=== PATIENT | female | born 1975 | race Caucasian/White ===

== ENCOUNTER 2018-01-24 04:45 | Emergency (ER) | payer SELFPAY ==
[2018-01-24 05:04] VITALS: BP 118/71; PULSE 65; RESP 18; TEMP 36.4; O2SAT 100; BMI 26.2
--- NOTE | 2018-01-24 05:17 | DI.CT.S_ITS ---
PROCEDURE: CT ABDOMEN PELVIS W CON INDICATIONS: upper abdominal pain w/ emesis, poor passage of flatus TECHNIQUE: After the administration of intravenous contrast, 5 mm thick sections acquired from the diaphragm to the symphysis. 5 mm coronal and sagittal reformats were acquired. For radiation dose reduction, the following was used: automated exposure control, adjustment of mA and/or kV according to patient size. COMPARISON: None. FINDINGS: Image quality: Excellent. ABDOMEN: Lung bases: Lung bases are clear. Heart size is normal. Solid organs: Liver is normal in size and enhancement. Gallbladder is surgically absent. Extrahepatic biliary ductal dilatation is present. Common bile duct measures 12 mm. Common hepatic duct is also distended measuring 12 mm. Pancreas enhances normally. Spleen is normal in size and enhancement. No adrenal nodules. Scarring within the interpolar right kidney is present. Kidneys demonstrate otherwise normal size and enhancement, without hydronephrosis. Peritoneum and bowel: There is fecalization and mild distention of a small bowel loop within the left pelvis anteriorly. Bowel loops demonstrate otherwise normal wall thickness and caliber. No free fluid or air. Appendix not seen. No evidence of appendicitis. Nodes and vessels: No retroperitoneal or mesenteric adenopathy by size criteria. Aorta and inferior vena cava are normal in size. Miscellaneous: No ventral hernias. PELVIS: Genitourinary: Bladder wall thickness is normal. Miscellaneous: No inguinal hernias or adenopathy. Bones: No suspicious bony lesions. No vertebral body compression fractures. IMPRESSION: 1. Mild fecalization and distention of a small bowel loop within the left pelvis anteriorly, which may indicate early obstruction. 2. Biliary ductal dilatation. This could be further assessed with MR CP, if clinically indicated. 3. Right inferior pole renal scarring. 4. Appendix not seen. No evidence of appendicitis. 5. Findings discussed with Dr. Rhodes on 01.24.18 at 0920 hrs. Dictated by: Trey Smith M.D. on 01/24/2018 at 9:19 Approved by: Trey Smith M.D. on 01/24/2018 at 9:25
[2018-01-24 05:30] LABS: Appearance Urine UA CLEAR; Bilirubin Urine UA NEGATIVE (NEGATIVE); Color Urine UA YELLOW; Glucose Urine UA NEGATIVE (Normal); Ketones Urine UA 3+ (NEGATIVE); Leukocyte Esterase Urine UA NEGATIVE (NEGATIVE); Nitrite Urine UA NEGATIVE (NEGATIVE); Occult Blood Urine UA TRACE-LYSED (Negative); Protein Urine UA NEGATIVE (Negative); Specific Gravity Urine UA 1.015 (1.000-1.035); pH Urine UA 8.5 (4.5-8.0)
[2018-01-24] MEDS: SODIUM CHLORIDE 0.9% 1,000 ML 1000 ML IV (05:31)
[2018-01-24] MEDS: HYDROMORPHONE 0.5 MG INJ IV (05:31)
[2018-01-24] MEDS: ONDANSETRON 4 MG/2 ML INJ 8 MG IV (05:31)
[2018-01-24 05:35] LABS: Urine Amphetamines Negative (Negative); Urine Barbiturates Negative (Negative); Urine Benzodiazepines Negative (Negative); Urine Cocaine Negative (Negative); Urine MDMA Negative (Negative); Urine Methadone Negative (Negative); Urine Methamphetamines Negative (Negative); Urine Morphine/Opi cutoff 2000 Negative (Negative); Urine Oxycodone Negative (Negative); Urine Phencyclidine Negative (Negative); Urine Tetrahydrocannabinol Positive (Negative); Urine Tricyclic Antidepressant Negative (Negative)
[2018-01-24 05:38] LABS: Bacteria Urine Occasional (0-1); Culture Indicated Urine Cult Not Indicated; RBC Urine 0-1/HPF (0-5/HPF); Squamous Epithelial Cell Urine 0-1 /HPF; WBC Urine 0-1/HPF (0-5/HPF)
[2018-01-24 05:39] LABS: Alanine Aminotransferase 24 IU/L (9-52); Albumin 4.2 g/dL (3.5-5.0); Albumin Globulin Ratio 1.4 (1.0-2.8); Alkaline Phosphatase 73 U/L (38-126); Aspartate Aminotransferase 17 IU/L (14-36); Bilirubin Total 0.6 mg/dL (0.2-1.3); Calcium 8.8 mg/dL (8.4-10.2); Estimated Glomerular Filt Rate > 60.0 mL/min (>60); Glucose 114 mg/dL (70-100); HEMOLYSIS < 15 (0-50); Lipase 96 U/L (23-300); Potassium 3.4 mmol/L (3.4-5.1); Sodium 137 mmol/L (137-145); Total Protein 7.2 g/dL (6.3-8.2)
[2018-01-24 05:44] LABS: Add Manual Diff / Slide Review NO; Basophils Percent Auto 0.5 % (0-2); Eosinophils Percent Auto 0.4 % (2-4); Hematocrit 42.7 % (36-46); Hemoglobin 14.9 g/dL (12.0-16.0); Mean Corpuscular HGB Conc 34.9 % (30-36); Mean Corpuscular Volume 88.7 fL (80-100); Monocytes Percent Auto 4.4 % (3-14); Neutrophils Absolute Auto 13000 /uL (3000-5900); Neutrophils Percent Auto 84.7 % (50-75); Platelet Count 302 X10^3/uL (150-400); Red Blood Cell Count 4.81 X10^6/uL (4.0-5.2); Red Cell Distribution Width 13.4 % (11.6-14.8); White Blood Cell Count 15.3 X10^3/uL (4.5-11.0)
--- NOTE | 2018-01-24 06:41 | DI.RAD.S_ITS ---
PROCEDURE: XR CHEST 2V INDICATIONS: epigastric pain TECHNIQUE: 2 views of the chest were acquired. COMPARISON: None. FINDINGS: Surgical changes and devices: Low anterior cervical fusion has been performed. Lungs and pleura: No pleural effusions or pneumothorax. Lungs are clear. Mediastinum: Mediastinal contours are normal. Heart size is normal. Bones and chest wall: No suspicious bony abnormalities. Soft tissues appear unremarkable. IMPRESSION: No acute process. Dictated by: Trey Smith M.D. on 01/24/2018 at 7:57 Approved by: Trey Smith M.D. on 01/24/2018 at 7:57
[2018-01-24] MEDS: HALOPERIDOL 5 MG/ML VIAL 3 MG IV (06:52)
--- NOTE | 2018-01-24 07:15 | ED_ITS ---
HPI - Abdominal Pain General Chief Complaint: Abdominal Pain Stated Complaint: severe upper abdominal pain, vomiting, fever History of Present Illness HPI narrative: HPI 42-year-old female with a history of cholecystectomy presents for evaluation of poorly characterized, moderate to severe upper abdominal pain with nausea and vomiting and normal passage of flatus and stool a 5 hours duration. Patient unable to identify provoking or relieving factors. Denies chest pain, shortness of breath, fevers, chills, dysuria, urinary frequency, vaginal discharge or discomfort. M/S/F/SocHx notable for: please see HPI; remainder reviewed with patient and in chart. ROS: Negative constitutional, eye, cardiovascular, pulmonary, GI, , MSK, skin , neurologic, psychiatric, endocrine unless noted in the HPI. Exam Gen: Pleasant, non-toxic appearing, resting comfortably. HEENT: NC, AT, PEERL, EOMI. Resp: Clear to auscultation bilaterally, normal work of breathing, no accessory muscle usage. Card: Regular rate and rhythm with no murmurs, rubs, or gallops, extremities warm and well perfused. GI: moderate epigastric tenderness palpation, otherwise non-tender to palpation throughout all quadrants, no focal tenderness at McBurney's point, non-distended , no rebound or guarding. : No suprapubic tenderness to palpation. MSK: No visible deformities, strength and tone without visually appreciable deficit. Skin: Normal color with no visible lesions. Neuro: AO x 3, no facial asymmetry, vision and hearing WNL. Psych: Mood and affect appropriate. Labs / Imaging: CT Abd/Pelvis: dilated common bile duct up to 1 cm with mild intrahepatic or dilation. This may be chronic status post cholecystectomy. Correlate with laboratory values. No other specific abnormality. WBC 15.3, HB 14.9, NA 137, K 3.4, glucose 114, calcium 8.8, total bilirubin 0.6 , AST 17, ALT 24, alkaline phosphatase 73, lipase 96. CXR: no acute cardiopulmonary disease process. Radiologist read pending. MDM Previous chart, nursing note, labs, imaging, and vitals reviewed. A: 42-year-old female with a history of cholecystectomy presents for evaluation of poorly characterized, moderate to severe upper abdominal pain with nausea and vomiting and normal passage of flatus and stool a 5 hours duration. DDx & Evaluation: patient with nonspecific leukocytosis, given the overall symptom constellation and absence of fever suspect this is secondary to stress demargination. CT abdomen notable for mild, bile duct dilation but no acute process noted. No clinical correlate on exam or laboratory values. Lipase WNL. CXR without evidence of lower lobe pneumonia. Doubt PE given overall symptoms, lack of identifiable risk factors, absence of hypoxemia or shortness of breath. Patient given hydromorphone and Zofran with improvement. Patient recurrent symptoms, patient given 3 mg haloperidol with near complete resolution of symptoms. PO challenge pending, patient care transferred to the daytime provider. Impression: abdominal pain (please reference below for remainder of encounter information) Related Data Home Medications Medication Instructions Recorded Confirmed No Known Home Medications 01/24/18 01/24/18 Allergies Allergy/AdvReac Type Severity Reaction Status Date / Time Sulfa (Sulfonamide Allergy Unknown Verified 01/24/18 05:06 Antibiotics) [SULFA (SULFONAMIDE ANTIBIOTICS)] [facility] Social History Smoking Status: Current every day smoker Exam Initial Vital Signs Initial Vital Signs: Vital Signs Temperature 97.6 F 01/24/18 05:04 Pulse Rate 65 01/24/18 05:04 Respiratory Rate 18 01/24/18 05:04 Blood Pressure 118/71 01/24/18 05:04 Pulse Oximetry 100 01/24/18 05:04 Course Orders Ordered: ED Orders 01/24/18 05:13 Complete Blood Count AUTO DIFF Stat Comprehensive Metabolic Panel Stat Lipase Stat 01/24/18 05:17 CT abdomen pelvis w con Stat 01/24/18 05:19 Rapid Drug Screen, Urine Stat Urinalysis and Microscopic Stat 01/24/18 06:41 XR chest 2V Stat Discontinued Medications Haloperidol (Haldol) 3 mg IV NOW ONE Stop: 01/24/18 06:42 Last Admin: 05/19/18 06:52 Dose: 3 mg Hydromorphone HCl (Dilaudid) 0.5 mg IV NOW ONE Stop: 01/24/18 05:18 Last Admin: 01/24/18 05:31 Dose: 0.5 mg Sodium Chloride (Normal Saline 0.9%) 1,000 mls @ 1,000 mls/hr IV BOLUS ONE Stop: 01/24/18 06:16 Last Infusion: 01/24/18 07:03 Dose: 0 mls/hr Admin: 01/24/18 05:31 Dose: 1,000 mls/hr Ondansetron HCl (Zofran) 8 mg IV NOW ONE Stop: 01/24/18 05:18 Last Admin: 01/24/18 05:31 Dose: 8 mg Vital Signs - 8 hr 01/24/18 05:04 Temperature 97.6 F Pulse Rate 65 Respiratory Rate 18 Blood Pressure 118/71 Pulse Oximetry 100 MDM - Abdominal Pain Lab Data Result diagrams: 01/24/18 05:13 01/24/18 05:13 Lab Results 01/24/18 01/24/18 01/24/18 Range/Units 05:13 05:13 05:19 WBC 15.3 H (4.5-11.0) X10^3/uL RBC 4.81 (4.0-5.2) X10^6/uL Hgb 14.9 (12.0-16.0) g/dL Hct 42.7 (36-46) % MCV 88.7 (80-100) fL MCH 31.0 (26-34) PG MCHC 34.9 (30-36) % RDW 13.4 (11.6-14.8) % Plt Count 302 (150-400) X10^3/uL Neut % (Auto) 84.7 H (50-75) % Lymph % (Auto) 10.0 L (25-40) % [place] % (Auto) 4.4 (3-14) % Eos % (Auto) 0.4 L (2-4) % Baso % (Auto) 0.5 (0-2) % Neut # (Auto) 83887 H (6117-3989) /uL Sodium 137 (137-145) mmol/L Potassium 3.4 (3.4-5.1) mmol/L Chloride 105.0 (98-107) mmol/L Carbon Dioxide 19.0 L (22-32) mmol/L BUN 18.0 H (7-17) mg/dL Creatinine 0.50 L (0.52-1.04) mg/dL Estimated GFR > 60.0 (>60) mL/min BUN/Creatinine Ratio 36.0 H (6-22) Glucose 114 H (70-100) mg/dL Calcium 8.8 (8.4-10.2) mg/dL Total Bilirubin 0.6 (0.2-1.3) mg/dL AST 17 (14-36) IU/L ALT 24 (9-52) IU/L Alkaline Phosphatase 73 (38-126) U/L Total Protein 7.2 (6.3-8.2) g/dL Albumin 4.2 (3.5-5.0) g/dL Globulin 3.0 (1.7-4.1) g/dL Albumin/Globulin Ratio 1.4 (1.0-2.8) Lipase 96 (23-300) U/L Urine Color Yellow Urine Appearance Clear Urine pH 8.5 H (4.5-8.0) Ur Specific [place] 1.015 (1.000-1.035) Urine Protein Negative (Negative) Urine Glucose (UA) Negative (Normal) g/dL Urine Ketones 3+ H (NEGATIVE) Urine Occult Blood Trace-lysed (Negative) Urine Nitrate Negative (NEGATIVE) Urine Bilirubin Negative (NEGATIVE) Urine Urobilinogen 1.0 (0.2) E.U./dL Ur Leukocyte Esterase Negative (NEGATIVE) Urine RBC 0-1/hpf (0-5/HPF) Urine WBC 0-1/hpf (0-5/HPF) Ur Squamous Epith Cells 0-1 /hpf Urine Bacteria Occasional (0-1) (None) Ur Culture Indicated? Cult not indicated Micro UA Comment Not Reportable Urine Opiates Screen (Negative) Ur Oxycodone Screen (Negative) Urine Methadone Screen (Negative) Ur Barbiturates Screen (Negative) U Tricyclic Antidepress (Negative) Ur Phencyclidine Scrn (Negative) Ur Amphetamines Screen (Negative) U Methamphetamines Scrn (Negative) Ur MDMA Scrn (Ecstasy) (Negative) U Benzodiazepines Scrn (Negative) Urine Cocaine Screen (Negative) U Marijuana (THC) Screen (Negative) 01/24/18 Range/Units 05:19 WBC (4.5-11.0) X10^3/uL RBC (4.0-5.2) X10^6/uL Hgb (12.0-16.0) g/dL Hct (36-46) % MCV (80-100) fL MCH (26-34) PG MCHC (30-36) % RDW (11.6-14.8) % Plt Count (150-400) X10^3/uL Neut % (Auto) (50-75) % Lymph % (Auto) (25-40) % [place] % (Auto) (3-14) % Eos % (Auto) (2-4) % Baso % (Auto) (0-2) % Neut # (Auto) (0060-9654) /uL Sodium (137-145) mmol/L Potassium (3.4-5.1) mmol/L Chloride (98-107) mmol/L Carbon Dioxide (22-32) mmol/L BUN (7-17) mg/dL Creatinine (0.52-1.04) mg/dL Estimated GFR (>60) mL/min BUN/Creatinine Ratio (6-22) Glucose (70-100) mg/dL Calcium (8.4-10.2) mg/dL Total Bilirubin (0.2-1.3) mg/dL AST (14-36) IU/L ALT (9-52) IU/L Alkaline Phosphatase (38-126) U/L Total Protein (6.3-8.2) g/dL Albumin (3.5-5.0) g/dL Globulin (1.7-4.1) g/dL Albumin/Globulin Ratio (1.0-2.8) Lipase (23-300) U/L Urine Color Urine Appearance Urine pH (4.5-8.0) Ur Specific [place] (1.000-1.035) Urine Protein (Negative) Urine Glucose (UA) (Normal) g/dL Urine Ketones (NEGATIVE) Urine Occult Blood (Negative) Urine Nitrate (NEGATIVE) Urine Bilirubin (NEGATIVE) Urine Urobilinogen (0.2) E.U./dL Ur Leukocyte Esterase (NEGATIVE) Urine RBC (0-5/HPF) Urine WBC (0-5/HPF) Ur Squamous Epith Cells Urine Bacteria (None) Ur Culture Indicated? Micro UA Comment Urine Opiates Screen Negative (Negative) Ur Oxycodone Screen Negative (Negative) Urine Methadone Screen Negative (Negative) Ur Barbiturates Screen Negative (Negative) U Tricyclic Antidepress Negative (Negative) Ur Phencyclidine Scrn Negative (Negative) Ur Amphetamines Screen Negative (Negative) U Methamphetamines Scrn Negative (Negative) Ur MDMA Scrn (Ecstasy) Negative (Negative) U Benzodiazepines Scrn Negative (Negative) Urine Cocaine Screen Negative (Negative) U Marijuana (THC) Screen Positive H (Negative) Discharge Plan Departure Prescriptions: No Action No Known Home Medications RF: 0
[2018-01-24 07:47] VITALS: BP 107/68; PULSE 61; RESP 16; O2SAT 97
== END 2018-01-24 08:18 | disposition home or self-care (01) ==
PROVIDERS: Emergency Medicine; Emergency Provider Emergency Medicine; Family Provider Physician Assistant Medical; PCP Physician Assistant Medical
DX: R10.9 Unspecified abdominal pain (principal)
CPT/HCPCS: 71046; 74177; 80053; 80305; 81001; 81025; 83690; 85025; 96361; 96374; 96375; 99283; 99285; J1170; J1630; J2405; Q9967